=== PATIENT | male | born 1945 | race African-American/Black ===

== ENCOUNTER 2019-02-18 01:47 | Inpatient (IN) | payer MEDICARE, OTHER ==
[~2019-02-18] VITALS: Ht 188 cm; Wt 108.4 kg
[2019-02-18] MEDS ORDERED: Isovue-370 150ml vial INJ PRN (02:00)
[2019-02-18] MEDS ORDERED: Morphine Sulfate 4mg/ml Inj (IV USE ONLY) IVP ONE (02:00)
--- NOTE | 2019-02-18 02:00 | Emergency Room Report ---
History of Present Illness General Chief Complaint: Chest Pain Source: Patient Present Illness HPI This is 73-year-old male with a psychiatric history. Also history of stage IV prostate cancer, hypertension, diabetes, CAD who presents with chest pain. Onset was about an hour ago. Localized to the right side. Pain is sharp. Woke him up from sleep. No relief with nitroglycerin or aspirin from MS. No radiation of the pain. No diaphoresis. No shortness of breath. Allergies: Coded Allergies: No Known Allergies (Unverified , 02/18/19) Patient History Past Medical History: see triage record, old chart reviewed, DM, HTN, CAD, psych hx Past Surgical History: other Pertinent Family History: none Social History: Reports: smoking Immunizations: other Reviewed Nursing Documentation: PMH: Agreed; PSxH: Agreed Nursing Documentation-PMH Past Medical History: No History, Except For Review of Systems Eye: Denies: eye pain, blurred vision ENT: Denies: ear pain, nose congestion, throat swelling Respiratory: Denies: cough, shortness of breath Cardiovascular: Reports: chest pain; Denies: palpitations Gastrointestinal: Denies: abdominal pain, diarrhea, nausea, vomiting Musculoskeletal: Denies: back pain, joint pain Skin: Denies: rash Neurological: Denies: headache, numbness Endocrine: Denies: increased thirst, increased urine Hematologic/Lymphatic: Denies: easy bruising All Other Systems: negative except mentioned in HPI Physical Exam Vital Signs Date Time Temp Pulse Resp B/P (MAP) Pulse Ox O2 Delivery O2 Flow Rate FiO2 02/18/19 01:46 99.0 92 18 143/66 (91) 99 Room Air Vitals unremarkable Sp02 EP Interpretation: reviewed, normal General Appearance: well appearing, no apparent distress, alert, obese Head: normocephalic, atraumatic Eyes: bilateral eye PERRL, bilateral eye EOMI ENT: hearing grossly normal, normal pharynx Neck: full range of motion, supple, no meningismus Respiratory: chest non-tender, lungs clear, normal breath sounds Cardiovascular #1: regular rate, rhythm, no murmur Gastrointestinal: normal bowel sounds, non tender, no mass, no organomegaly, no bruit, non-distended Musculoskeletal: back normal, gait/station normal, normal range of motion Psychiatric: mood/affect normal Medical Decision Making Diagnostic Impression: Primary Impression: Chest pain Qualified Codes: R07.9 - Chest pain, unspecified Additional Impressions: CKD (chronic kidney disease) Qualified Codes: N18.9 - Chronic kidney disease, unspecified Hypertension Qualified Codes: I10 - Essential (primary) hypertension ER Course Patient presents with atypical chest pain. No evidence of ACS, PE, dissection to name a few. First set of troponin negative. Will admit for further work- up. Patient has multiple risk factors. Patient is from [facility]. Admitting doctor will be Dr. Che. EKG Diagnostic Results Rate: normal Rhythm: NSR ST Segments: no acute changes Rhythm Strip Diag. Results EP Interpretation: yes Rate: 60 Rhythm: NSR, no PVC's, no ectopy Chest X-Ray Diagnostic Results Chest X-Ray Diagnostic Results : Chest X-Ray Ordered: Yes # of Views/Limited/Complete: 1 View Indication: Chest Pain EP Interpretation: Yes Interpretation: no consolidation, no effusion, no pneumothorax, no acute cardiopulmonary disease Impression: No acute disease Electronically Signed by: Harley Parson MD Last Vital Signs Date Time Temp Pulse Resp B/P (MAP) Pulse Ox O2 Delivery O2 Flow Rate FiO2 02/18/19 01:46 99.0 92 18 143/66 (91) 99 Room Air Status: improved Disposition: ADMITTED INPATIENT Condition: Serious Harley Parson MD Feb 18, 2019 02:00
[2019-02-18] MEDS ORDERED: ALPHAGAN P5 ML OP (02:15)
[2019-02-18] MEDS ORDERED: ALDACTONE25 MG ORAL (02:15)
[2019-02-18] MEDS ORDERED: ATORVASTATIN CA20 MG ORAL (02:15)
[2019-02-18] MEDS ORDERED: BENAZEPRIL HCL40 MG ORAL (02:15)
[2019-02-18] MEDS ORDERED: TYLENOL EXTRA500 MG ORAL (02:16)
[2019-02-18] MEDS ORDERED: DORZOLAMIDE 2%10 ML OP (02:16)
[2019-02-18] MEDS ORDERED: FLEET ENEMA133 M1 RC (02:16)
[2019-02-18] MEDS ORDERED: POTASSIUM CHLO10 ME3 ORAL (02:16)
[2019-02-18] MEDS ORDERED: FOLIC ACID1 M1 PO (02:16)
[2019-02-18] MEDS ORDERED: METFORMIN HCL500 M1 ORAL (02:16)
[2019-02-18] MEDS ORDERED: SEMAGLUTIDE (02:16)
[2019-02-18] MEDS ORDERED: APRESOLINE50 MG ORAL (02:16)
[2019-02-18] MEDS ORDERED: QUETIAPINE FUMA25 MG ORAL (02:16)
[2019-02-18] MEDS ORDERED: MOM30 ML ORAL (02:16)
[2019-02-18] MEDS ORDERED: DULCOLAX10 MG RC (02:16)
[2019-02-18] MEDS ORDERED: COREG12.5 MG ORAL (02:16)
[2019-02-18] MEDS ORDERED: ISORDIL TITRADOS5 MG PO (02:16)
[2019-02-18] MEDS ORDERED: EMPAGLIFLOZIN PO (02:16)
[2019-02-18] MEDS ORDERED: ACETAMINOPHEN325 M1 ORAL (02:16)
[2019-02-18] MEDS ORDERED: PROSCAR5 MG ORAL (02:16)
[2019-02-18] MEDS ORDERED: VITAMIN D400 INTLU ORAL (02:16)
[2019-02-18 02:20] VITALS: BP 143/66
[2019-02-18 02:23] LABS: BASOPHILS % (AUTO) 0.6 % (0.0-2.0); EOSINOPHILS % (AUTO) 4.2 % (0.0-3.0); HEMATOCRIT 34.7 % (42.0-52.0); HEMOGLOBIN 11.7 G/DL (14.2-18.0); LYMPHOCYTES % (AUTO) 17.6 % (20.0-45.0); MEAN CORPUSCULAR VOLUME 81 FL (80-99); MONOCYTES % (AUTO) 6.4 % (1.0-10.0); NEUTROPHILS % (AUTO) 71.2 % (45.0-75.0); PLATELET COUNT 198 K/UL (150-450); RED BLOOD COUNT 4.31 M/UL (4.70-6.10); RED CELL DISTRIBUTION WIDTH 13.7 % (11.6-14.8); WHITE BLOOD COUNT 10.1 K/UL (4.8-10.8)
--- NOTE | 2019-02-18 02:24 | NUR ---
ED Nurse Note: PT WAS BIBA R26 FROM [facility] C/C SUBSTERNAL CP X 1 HR. 324MG ASA AND 2 SPRAY 0.4MG NITRO GIVEN ON FIELD BY MEDIC. AAO X4, VSS AT THIS TIME, SKIN IS DRY WARM TO TOUCH.
[2019-02-18 02:34] LABS: ANION GAP 11 mmol/L (5-15); BLOOD UREA NITROGEN 25 mg/dL (7-18); CALCIUM 8.7 MG/DL (8.5-10.1); CARBON DIOXIDE 25 MMOL/L (21-32); CHLORIDE 109 MMOL/L (98-107); CREATININE 1.7 MG/DL (0.55-1.30); POTASSIUM 4.8 MMOL/L (3.5-5.1); SODIUM 145 MMOL/L (136-145)
[2019-02-18 02:38] LABS: INR 1.1 (0.9-1.1)
[2019-02-18 02:47] LABS: ALANINE AMINOTRANSFERASE 14 U/L (12-78); ALBUMIN 3.8 G/DL (3.4-5.0); ALBUMIN/GLOBULIN RATIO 1.2 (1.0-2.7); ASPARTATE AMINO TRANSFERASE 24 U/L (15-37); BILIRUBIN,TOTAL 0.3 MG/DL (0.2-1.0)
[2019-02-18 02:48] LABS: ALKALINE PHOSPHATASE 2135 U/L (46-116)
[2019-02-18 04:04] VITALS: BP 168/77
--- NOTE | 2019-02-18 04:07 | NUR ---
ED Nurse Note: report given to Florian hernandez.
--- NOTE | 2019-02-18 04:30 | NUR ---
NURSE NOTES: Received patient from ED nurse Bijal PIERCE. PAtient is awake and oriented x2. Receiving oxygen via room, air, saturating at 96%. Heart Monitor is on. IV site is right AC 20g, patent and asymptomatic. Patient has no belongings. Dr. Che made aware and orders were placed. Bed is locked, placed in lowest position, side rails up x3, Call light within reach. Will continue to monitor,.
[2019-02-18] MEDS ORDERED: Milk of Magnesia 30ml Ud ORAL PRN (05:00)
[2019-02-18] MEDS ORDERED: Fleet's Enema 133ml RECTAL PRN (05:00)
[2019-02-18] MEDS ORDERED: Nitroglycerin Subl 0.4mg tab SL PRN (05:15)
--- NOTE | 2019-02-18 05:38 | NUR ---
ED Nurse Note: Patient was admited to Tele due to CP. AAO x4, VSS at this time, skin is warm to touch. Pstient was transfered to the unit via gurney, by ACLS protocol with all belongings.
[2019-02-18] MEDS: Brimonidine 0.2% Opth Sol BOTH EYES SCH ×3 (06:00→21:00)
--- NOTE | 2019-02-18 06:00 | NUR ---
NURSE NOTES: Alphagan was non-administered due to patient being newly admitted to unit. Alphagan has not been brought to floor. Patient was admitted to telemetry at 0430 Addendum: 02/22/19 at 0738 by Su Hill RN Patient's Alphagan was not available at the time of scheduled administration.
[2019-02-18] MEDS: NovoLOG Insulin Flexpen SUBQ SCH ×4 (06:30→20:58)
--- NOTE | 2019-02-18 06:30 | NUR ---
NURSE NOTES: Novolog was not able to be administered due to patient being newly admitted to floor. Addendum: 02/22/19 at 0737 by Su Hill RN Patient's Novolog medication was not available at the time of scheduled administration.
--- NOTE | 2019-02-18 07:25 | NUR ---
HAND-OFF: Report given to Min RN.
--- NOTE | 2019-02-18 07:26 | NUR ---
NURSE NOTES: Received report from Murtaza RN. Pt in bed awake and still c/o pain in right chest area 07/18 but refused to take meds for pain now. Siderails x2 up for safety. Sinus rhythm noted on radiation monitor. Call light within easy reach. IV site 20G RAC SL intact and patent. Will continue to plan of care.
[2019-02-18 08:51] VITALS: BP 121/71
[2019-02-18] MEDS ORDERED: metFORMIN 500mg tab ORAL SCH (09:00)
--- NOTE | 2019-02-18 09:00 | History and Physical Report ---
DATE OF ADMISSION: 02/18/2019 CHIEF COMPLAINT: Chest pain. HISTORY OF PRESENT ILLNESS: The patient is a 73-year-old male. He has a prior history of prostate cancer, ischemic cardiomyopathy, depression, diabetes, dementia with psychosis, who presented with complaints of chest pain. The patient is a poor historian. According to the patient, he had chest pain on the evening of admission and presented to the emergency room. On evaluation there, his EKG was unremarkable. His initial troponin was negative. In light of his significant cardiac history, he is now admitted for further evaluation and care. PAST MEDICAL HISTORY: As above. PAST SURGICAL HISTORY: Includes prostatectomy. CURRENT MEDICATIONS: Reconciled and reviewed. ALLERGIES: None. FAMILY HISTORY: Significant for stroke and heart attack. SOCIAL HISTORY: Negative for alcohol or drugs. The patient was previously a smoker. REVIEW OF SYSTEMS: GENERAL: No fever or chills. HEENT: No headaches or visual changes. CARDIOPULMONARY: Positive for chest pain. No shortness of breath. GASTROINTESTINAL: No nausea or vomiting. GENITOURINARY: No urgency or frequency. MUSCULOSKELETAL: No joint pain or swelling. NEUROLOGIC: No evidence of seizures. PHYSICAL EXAMINATION: VITAL SIGNS: Temperature 99, pulse 60, respirations 16, blood pressure 168/77. GENERAL: The patient is a well-developed male, in no apparent distress. He is awake and alert. HEENT: His pupils are equal, round, reactive to light. Oropharynx is clear. NECK: Supple. HEART: Regular rate and rhythm. LUNGS: Clear. ABDOMEN: Soft, nontender, nondistended. EXTREMITIES: Without clubbing, cyanosis, or edema. NEUROLOGIC: Grossly nonfocal. LABORATORY DATA: Labs showed white count of 10, hemoglobin 11, hematocrit 34, platelets of 198,000. Sodium 145, potassium 4.8, chloride 109, bicarb 25, BUN 25, creatinine 1.7. Coags are normal. EKG showed sinus bradycardia without any acute ST-T wave changes. ASSESSMENT: This is a pleasant male with history of ischemic cardiomyopathy, hypertension, diabetes, prostate cancer, admitted with complaints of chest pain. PROBLEM LIST: 1. Chest pain, rule out acute coronary syndrome. 2. Diabetes. 3. Hypertension. 4. History of dementia with psychosis. PLAN: Serial enzymes and EKGs. Continue antiplatelet therapy, as-needed nitrates. Cardiology consultation will be obtained. We will check venous duplex and check an echo. Further plan of care will be determined after review of pending tests and discussion with the consulting vaccinator. John Che M.D. DR: Danny JOB#: [id number] CC:
[2019-02-18] MEDS: Vitamin D 1000 IU Tab ORAL SCH (09:23)
[2019-02-18] MEDS: Spironolactone 25mg tab ORAL SCH ×2 (09:24→17:41)
[2019-02-18] MEDS: Carvedilol 12.5mg tab ORAL SCH ×2 (09:24→20:56)
[2019-02-18] MEDS: HydrALAZINE 50mg tab ORAL SCH ×2 (09:24→20:55)
[2019-02-18] MEDS: Dorzolamide 2% 10ml Btl BOTH EYES SCH ×3 (09:28→17:42)
[2019-02-18] MEDS: Heparin 5000 units/ml inj SUBQ SCH ×2 (09:28→20:57)
[2019-02-18 12:00] VITALS: BP 138/64
--- NOTE | 2019-02-18 12:33 | Diagnostic Imaging Report ---
Indication: Chest pain Technique: One view of the chest Comparison: none Findings: Patient is slightly rotated to the right. The left hemidiaphragm is scalloped. The lungs and pleural spaces are clear. The heart size is normal. Impression: No acute process
--- NOTE | 2019-02-18 15:40 | NUR ---
NURSE NOTES: Trop-i elevated from 0.010 to 0.017 and results reported to Dr. Jolly and no new order noted.
[2019-02-18 16:00] VITALS: BP 130/82
--- NOTE | 2019-02-18 16:47 | NUR ---
CASE MANAGEMENT:REVIEW 73 YR OLD MALE BIBA FROM [facility] CC; CHEST PAIN SI: CHEST PAIN. CKD. HYPERTENSION 99.0 92 18 143/66 99% ON RA TROPONIN(-) BUN+25 CR+1.7 IS: ASA PO PROCESS CONTROL TECH NITRO GIVEN PROCESS CONTROL TECH IV MORPHINE 1L NS BOLUS IV ZOFRAN CHEST XRAY CTA CHEST : TO TELEMETRY
--- NOTE | 2019-02-18 19:10 | NUR ---
HAND-OFF: Report given to Edwar PIERCE. Pt remains stable.
--- NOTE | 2019-02-18 19:15 | NUR ---
NURSE NOTES: Report received from KARI Leo. Observed pt lying in the bed, awake, A/O x1. No signs of pain noted. SR on media monitor. RA with no signs of SOB. ABD round and soft. IV on R A 20G SL. Bed in the lowest position. Side rails up x2. Call light within reach. Will continue to monitor.
[2019-02-18 20:00] VITALS: BP 149/67
[2019-02-19] VITALS: BP 125/71
--- NOTE | 2019-02-19 | NUR ---
NURSE NOTES: Observed pt sleeping in the bed. Pt appears calm and comfortable. Bed bath given. Reposition done. condom cath reapplied. Will continue to monitor.
--- NOTE | 2019-02-19 01:15 | Consultation ---
DATE OF CONSULTATION: 02/18/2019 CONSULTING PHYSICIAN: Derrick Jolly M.D. REQUESTING PHYSICIAN: Dr. John Che. REASON FOR CONSULTATION: Chest pain. HISTORY OF PRESENT ILLNESS: This 73-year-old male with a history of ischemic heart disease presented to the emergency room by paramedics from his group home because of chest pain. He is a poor historian. No other details are available. His initial EKG revealed sinus rhythm with nonspecific ST changes. PAST MEDICAL HISTORY: Includes coronary artery disease, depression, prostate cancer, dementia, type 2 diabetes mellitus, status post transurethral resection of prostate. ALLERGIES: None. MEDICATIONS: Reviewed. SOCIAL HISTORY: Prior smoker. No alcohol or substance abuse. FAMILY HISTORY: Notable for coronary artery disease and cerebrovascular disease. REVIEW OF SYSTEMS: Cannot be reliably obtained. PHYSICAL EXAMINATION: GENERAL: He is well developed and well nourished, presently in no distress. VITALS SIGNS: Reviewed, presently blood pressure 168/77, pulse 60, respirations 16, afebrile, and temperature 99. HEENT: Normocephalic and atraumatic. Conjunctivae pink. Oropharynx clear. NECK: Supple. Jugular venous pressure normal. LUNGS: Clear. CARDIAC: Regular rhythm and rate. Normal S1 and S2 with a fourth heart sound. ABDOMEN: Soft and nontender. No guarding or rebound. EXTREMITIES: Good pulses. No edema. NEUROLOGIC: Mild cognitive impairment. LABORATORY DATA: Notable for BUN 25, creatinine 1.7, potassium 4.8, troponin negative x2. EKG revealed sinus bradycardia. IMPRESSION: 1. Possible acute coronary syndrome, history of coronary artery disease and ischemic cardiomyopathy. 2. Hypertension with history of hypertensive heart disease. 3. Type 2 diabetes mellitus. 4. Acute and possibly chronic kidney disease. PLAN: 1. Cardiac monitoring. 2. Serial cardiac enzymes. 3. Titrate antihypertensive and antianginal regimen. 4. Continued anti-platelet therapy. 5. Check echocardiogram. 6. Conservative management. 7. Lipid panel, reassess for statin therapy. 8. We will follow. Derrick Jolly M.D. DR: EVITA JOB#: [id number] CC:
[2019-02-19 04:00] VITALS: BP 145/69
[2019-02-19] MEDS: Brimonidine 0.2% Opth Sol BOTH EYES SCH ×3 (06:06→22:16)
[2019-02-19] MEDS: NovoLOG Insulin Flexpen SUBQ SCH ×4 (06:08→21:33)
--- NOTE | 2019-02-19 07:37 | NUR ---
HAND-OFF: Report given to KARI Bassett.
--- NOTE | 2019-02-19 07:56 | NUR ---
NURSE NOTES: Received report from KARI Vann. patient aox3 with calm, cooperative affect. Found eating breakfast/watching TV (ate 75% with no nvd). Breathing easily on RA with no sign o cardiac or respiratory distress. NSR on telemetry. Bed in lowest , locked position with call shields and condom cath in place draining clear, yellow urine. Cont'd with plan of care. No CO chest pain currently. Addendum: 02/19/19 at 1901 by Petros Zapata RN 645pm: changed condom cath and changed sheets with underpad wet from voiding.Hygiene provided adn repositioned patient off of pressure points.
[2019-02-19 08:00] VITALS: BP 124/64
[2019-02-19] MEDS: Heparin 5000 units/ml inj SUBQ SCH ×2 (09:24→21:21)
[2019-02-19] MEDS: Spironolactone 25mg tab ORAL SCH ×2 (09:27→17:54)
[2019-02-19] MEDS: Carvedilol 12.5mg tab ORAL SCH ×2 (09:27→21:15)
[2019-02-19] MEDS: Dorzolamide 2% 10ml Btl BOTH EYES SCH ×3 (09:27→17:55)
[2019-02-19] MEDS: Vitamin D 1000 IU Tab ORAL SCH (09:27)
[2019-02-19] MEDS: HydrALAZINE 50mg tab ORAL SCH ×2 (09:28→21:16)
--- NOTE | 2019-02-19 10:42 | General Progress Note ---
Assessment/Plan Problem List: (1) CKD (chronic kidney disease) ICD Codes: N18.9 - Chronic kidney disease, unspecified SNOMED: 218279014 Qualifiers: Qualified Codes: N18.9 - Chronic kidney disease, unspecified (2) Hypertension ICD Codes: I10 - Essential (primary) hypertension SNOMED: 00212059 Qualifiers: Qualified Codes: I10 - Essential (primary) hypertension (3) Chest pain ICD Codes: R07.9 - Chest pain, unspecified SNOMED: [id number] Qualifiers: Qualified Codes: R07.9 - Chest pain, unspecified Status: stable Assessment/Plan: cont current rx dc planning if no further cardiac w/u recommended Subjective ROS Limited/Unobtainable: No Constitutional: Reports: weakness HEENT: Reports: no symptoms Cardiovascular: Reports: no symptoms Respiratory: Reports: no symptoms Gastrointestinal/Abdominal: Reports: no symptoms Genitourinary: Reports: no symptoms Neurologic/Psychiatric: Reports: no symptoms Endocrine: Reports: no symptoms Hematologic/Lymphatic: Reports: no symptoms Allergies: Coded Allergies: No Known Allergies (Unverified , 02/18/19) All Systems: reviewed and negative except above Subjective no complaints. no cp/sob. withdrawn. tearful and anxious. trop neg. duplex neg. echo nml Objective Last 24 Hour Vital Signs Date Time Temp Pulse Resp B/P (MAP) Pulse Ox O2 Delivery O2 Flow Rate FiO2 02/19/19 09:28 124/64 02/19/19 09:28 124/64 02/19/19 09:27 65 124/64 02/19/19 08:00 86 02/19/19 08:00 97.7 65 22 124/64 (84) 98 02/19/19 07:53 Room Air 02/19/19 04:00 59 02/19/19 04:00 97.6 76 18 145/69 (94) 97 02/19/19 00:00 63 02/19/19 00:00 98.9 67 20 125/71 (89) 96 02/18/19 21:00 Room Air 02/18/19 20:56 66 149/67 02/18/19 20:56 149/67 02/18/19 20:55 149/67 02/18/19 20:00 98.6 60 20 149/67 (94) 96 02/18/19 20:00 62 02/18/19 17:42 130/82 02/18/19 16:00 97.0 57 20 130/82 (98) 96 02/18/19 16:00 56 02/18/19 12:00 72 02/18/19 12:00 98.7 68 20 138/64 (88) 96 Intake and Output 02/18/19 02/19/19 18:59 06:59 Output Total 600 ml 200 ml Balance -600 ml -200 ml Output Urine Total 600 ml 200 ml # Voids 2 Laboratory Tests 02/18/19 12:05: Troponin I 0.017 Height (Feet): 6 Height (Inches): 2.00 Weight (Pounds): 239 General Appearance: WD/WN, alert Neck: supple Cardiovascular: normal rate Respiratory/Chest: chest wall non-tender, lungs clear, normal breath sounds, no respiratory distress Abdomen: normal bowel sounds, non tender, soft, no organomegaly Edema: no edema noted Arm (L), no edema noted Arm (R), no edema noted Leg (L), no edema noted Leg (R), no edema noted Pedal (L), no edema noted Pedal (R), no edema noted Generalized Neurologic: general internal medicine doctor II-XII grossly normal John Che MD Feb 19, 2019 10:42
[2019-02-19 12:00] VITALS: BP 106/47
--- NOTE | 2019-02-19 13:18 | Cardiology Report ---
APPROVED REPORT EKG Measurement Heart [id number] MD [id number] Sinus bradycardia with sinus arrhythmia Otherwise normal ECG
[2019-02-19 16:00] VITALS: BP 97/51
--- NOTE | 2019-02-19 19:30 | NUR ---
NURSE NOTES: Received patient from Serjio PIERCE. Patient in bed, on room air, no s/s of respiratory distress. Patient is alert and oriented x2 to self and place. Calm and cooperative. Bed in low position, locked, bed alarm on, call light within reach.
[2019-02-19 20:00] VITALS: BP 122/62
--- NOTE | 2019-02-19 22:45 | Progress Note ---
DATE: 02/19/2019 CARDIOLOGY PROGRESS NOTE SUBJECTIVE: The patient has no chest pain. No shortness of breath. Echocardiogram was reviewed and is without any significant acute pathology. OBJECTIVE: VITAL SIGNS: Blood pressure 124/64, pulse 65, respiratory rate 22, and afebrile. LUNGS: Clear. CARDIAC: Regular. Normal S1 and S2. ABDOMEN: Soft. EXTREMITIES: No edema. LABORATORY DATA: Labs noted. IMPRESSION: 1. No signs of acute coronary insufficiency or compromise. 2. Adequate blood pressure control. 3. No signs of acute congestive heart failure. PLAN: 1. Stable for outpatient management on current cardiovascular regimen. 2. No additional cardiovascular workup planned. Derrick Jolly M.D. DR: BRYANNA JOB#: [id number] CC:
[2019-02-20] VITALS: BP 109/53
[2019-02-20 04:00] VITALS: BP 143/77
[2019-02-20] MEDS: Brimonidine 0.2% Opth Sol BOTH EYES SCH ×2 (05:46→13:30)
[2019-02-20] MEDS: NovoLOG Insulin Flexpen SUBQ SCH ×2 (05:49→11:58)
--- NOTE | 2019-02-20 07:34 | NUR ---
HAND-OFF: Report given to Serjio PIERCE. Plan of care endorsed.
--- NOTE | 2019-02-20 07:46 | NUR ---
NURSE NOTES: Got report from KARI Bueno. Patient found eating breakfast in bed with aox3 with calm, cooperative affect. Bed in low, locked position with urinal and call shields in reach. Condom cath off--patient currently clean and dry, but pat stated he is incontinent. No CO pain. Breathing easily on RA and NSR on tele with VSS. Cont'd with plan of care. Awaiting open bed on Med/Surg unit--Dr Jolly placed transfer order overnight. Addendum: 02/20/19 at 0758 by Petros Zapata RN 7:56 am: entered room to find patient finished [facility] and had self-removed his IV. No sign of bleeding. Patient stated "It was hurting, so I took it out" THis RN told patient to call for any pain or inconvenience that might happen, and to not remove IVs. Informed patient of need to establish new IV access. Patient said he would not remove the next one...wc Addendum: 02/20/19 at 1630 by Petros Zapata RN Gave report to Jaimie at [facility]. Patient VSS breathing easily on RA. No sign of cardiac or respiratory distress. No CO pain. Removed IV, hospital id band and returned tele box. Changed underpad for patient after his incont void and provided hygiene. Skin intact wtih no redness or breakdown. Patietn is AOX3 with calm, cooperative affect. [facility] crew here to transport patient to [facility].
[2019-02-20 08:00] VITALS: BP 114/52
[2019-02-20] MEDS: Vitamin D 1000 IU Tab ORAL SCH (09:02)
[2019-02-20] MEDS: Spironolactone 25mg tab ORAL SCH (09:03)
[2019-02-20] MEDS: HydrALAZINE 50mg tab ORAL SCH (09:03)
[2019-02-20] MEDS: Carvedilol 12.5mg tab ORAL SCH (09:04)
[2019-02-20] MEDS: Heparin 5000 units/ml inj SUBQ SCH (09:11)
[2019-02-20] MEDS: Dorzolamide 2% 10ml Btl BOTH EYES SCH ×2 (09:12→12:02)
--- NOTE | 2019-02-20 11:26 | NUR ---
NURSE NOTES: pt with order dc to snf, call placed to [facility] regarding the bed, spoke with Jaimie and she stated will call us back if can admit pt.
[2019-02-20 12:00] VITALS: BP 123/73
--- NOTE | 2019-02-20 12:28 | NUR ---
NURSE NOTES: Jaimie from [facility] called and gave an okay to take pt back today.
--- NOTE | 2019-02-20 17:45 | Discharge Summary ---
DATE OF ADMISSION: 02/18/2019 DATE OF DISCHARGE: 02/20/2019 ADMISSION DIAGNOSES: 1. Chest pain, rule out acute coronary syndrome. 2. Hypertension. 3. Benign prostatic hypertrophy. 4. Diabetes. 5. History of dementia and psychosis. DISCHARGE DIAGNOSES: 1. Chest pain, rule out acute coronary syndrome. 2. Hypertension. 3. Benign prostatic hypertrophy. 4. Diabetes. 5. History of dementia and psychosis. HOSPITAL COURSE: The patient is a pleasant male with history of hypertension and diabetes, who was admitted with complaints of chest pain. He was ruled out for HI with serial enzymes and EKGs. Cardiology consultation was obtained. Chest x-ray was clear. Venous duplex was also unremarkable. The patient had no further episodes of chest pain. No further diagnostic workup was recommended. The patient was stable. [facility] regular doctor there. DISCHARGE MEDICATIONS: Please see discharge medication list for discharge medications. DIET: Cardiac diabetic diet. ACTIVITY: Ad-levy. John Che M.D. DR: Morteza JOB#: [id number] CC:
--- NOTE | 2019-02-20 20:00 | Progress Note ---
DATE: 02/20/2019 SUBJECTIVE: The patient has no new complaints of chest pain or shortness of breath. OBJECTIVE: VITAL SIGNS: Blood pressure parameters are stable. Monitored rhythm sinus with no significant ectopy. HEENT: Conjunctiva pink. NECK: Supple. Jugular venous pressure normal. LUNGS: Clear. CARDIAC: Regular rhythm and rate. Normal S1, S2 with a fourth heart sound. ABDOMEN: Soft, nontender. No edema. IMPRESSION: 1. No signs of acute coronary insufficiency. 2. Hypertensive heart disease with controlled blood pressure. 3. Cerebrovascular disease with dementia at baseline mentation. PLAN: 1. Recommend return to senior living facility. 2. Current medication regimen appropriate. 3. No additional cardiovascular workup indicated at this time. Derrick Jolly M.D. DR: DWAYNE JOB#: [id number] CC:
--- NOTE | 2019-02-21 08:49 | Cardiology Report ---
APPROVED REPORT EXAM: Two-dimensional and M-mode echocardiogram with Doppler and color Doppler. INDICATION Angina Pectoris M-Mode DIMENSIONS IVSd1.0 (0.7-1.1cm)Left Atrium (MM)3.0 (1.6-4.0cm) LVDd4.5 (3.5-5.6cm)Aortic Root3.1 (2.0-3.7cm) PWd1.0 (0.7-1.1cm)Aortic Cusp Exc.1.6 (1.5-2.0cm) LVDs2.4 (2.5-4.0cm) PWs1.4 cm Technically difficult study due to poor acoustical windows. Normal left ventricular chamber size, systolic function and wall motion to extent visualized. Left ventricular ejection fraction estimated to be 65%. Mild left ventricular hypertrophy by 2D. No evidence of pericardial effusion. All other cardiac chamber sizes are within normal limits. Focal aortic valve sclerosis with adequate cusp excursion. Thickened mitral valve leaflets with normal excursion. Mitral annulus and aortic root calcification. Pulmonic valve not well visualized. Normal tricuspid valve structure. IVC at normal size with physiologic collapse. A color flow and spectral Doppler study was performed and revealed: No aortic regurgitation. Trace mitral regurgitation. Mitral diastolic velocities suggest reduced left ventricular relaxation c/w mild LV diastolic dysfunction (Grade I). Trace tricuspid regurgitation. Tricuspid systolic velocities suggests peak right ventricular systolic pressure of 20 mmHg.
--- NOTE | 2019-02-21 23:22 | Diagnostic Imaging Report ---
APPROVED REPORT CPT Code: 47548 Present Symptoms Comments: Chest Pain BILATERAL: Imaging reveals a patent deep venous system bilaterally. There is no evidence of thrombus within the common femoral, superficial femoral, popliteal or tibial segments. The greater saphenous veins are within normal limits. Doppler indicates normal spontaneous flow within these segments.
== END 2019-02-20 16:30 | DRG 311 ==
LOC: EDBD 01:47 → EMR 01:58 → 2E 02:54 → EDBEDREQ 03:41
DX: I24.9 Acute ischemic heart disease, unspecified (principal); N17.9 Acute kidney failure, unspecified; I13.10 Hypertensive heart and chronic kidney disease without heart failure, with stage 1 through stage 4 chronic kidney disease, or unspecified chronic kidney disease; N18.9 Chronic kidney disease, unspecified; N40.0 Benign prostatic hyperplasia without lower urinary tract symptoms; Z85.46 Personal history of malignant neoplasm of prostate; Z87.891 Personal history of nicotine dependence; I25.5 Ischemic cardiomyopathy; E11.22 Type 2 diabetes mellitus with diabetic chronic kidney disease; F01.50 Vascular dementia, unspecified severity, without behavioral disturbance, psychotic disturbance, mood disturbance, and anxiety
CPT/HCPCS: 36415; 71045; 80053; 82962; 83036; 84484; 85025; 85610; 85730; 87081; 93005; 93306; 93970; 96361; 96374; 96375; 99285; J2405